=== PATIENT | male | born 1965 | race Asian ===

== ENCOUNTER 2021-08-01 17:39 | Emergency (ER) | payer OTHER ==
[~2021-08-01] VITALS: Ht 167.6 cm; Wt 79.4 kg
[2021-08-01 19:02] LABS: ABSOLUTE NEUTROPHILS 9.9 thou/uL (1.4-8.2); BASOPHILS 0.1 % (0.0-2.0); EOSINOPHILS 0.3 % (0.0-3.0); HEMOGLOBIN 12.1 gm/dL (14.0-18.0); LYMPHOCYTES 10.3 % (24.0-44.0); MCH 32.1 pg (26.0-34.0); MCHC 32.8 g/dL (28.0-37.0); PLATELET COUNT 186 thou/uL (150-400); POLYS 82.3 % (36.0-66.0); RBC 3.78 mil/uL (4.50-6.00); RDW 14.3 % (10.5-14.5); WBC 12.1 thou/uL (4.0-11.0)
[2021-08-01 19:05] LABS: CALCIUM 8.7 mg/dL (8.5-10.1); POTASSIUM 3.5 mmol/L (3.5-5.1)
[2021-08-01 19:11] LABS: ALBUMIN 2.8 g/dL (3.4-5.0); TOTAL BILIRUBIN 1.1 mg/dL (0.2-1.0)
[2021-08-01] MEDS ORDERED: CARVEDILOL3.125 MG PO (19:53)
[2021-08-01] MEDS ORDERED: XARELTO20 MG PO (19:53)
[2021-08-01 20:14] VITALS: BP 114/80
[2021-08-01] MEDS ORDERED: MEDROLDOSEPACK PO (20:15)
[2021-08-01] MEDS ORDERED: DOXYCYCLINE 10100 MG PO (20:15)
[2021-08-01] MEDS ORDERED: ULTRAM 50MG TAB50 MG PO (20:22)
== END 2021-08-01 20:28 | disposition home or self-care (01) ==
LOC: ER 17:39
PROVIDERS: Nurse Practitioner
DX: L03.113 Cellulitis of right upper limb (principal); Z79.899 Other long term (current) drug therapy

== ENCOUNTER 2021-08-03 16:54 | Emergency (ER) | payer OTHER ==
[~2021-08-03] VITALS: Ht 167.6 cm; Wt 74.8 kg
[~2021-08-03 16:54] MED LIST: CARVEDILOL3.125 MG PO; DOXYCYCLINE 10100 MG PO; MEDROLDOSEPACK PO; ULTRAM 50MG TAB50 MG PO; XARELTO20 MG PO
[2021-08-03 18:28] LABS: ABSOLUTE NEUTROPHILS 14.3 thou/uL (1.4-8.2); BASOPHILS 0.2 % (0.0-2.0); EOSINOPHILS 0.1 % (0.0-3.0); HEMATOCRIT 36.3 % (42.0-52.0); HEMOGLOBIN 12.2 gm/dL (14.0-18.0); LYMPHOCYTES 6.9 % (24.0-44.0); MCH 32.6 pg (26.0-34.0); MCHC 33.6 g/dL (28.0-37.0); MCV 97.3 fL (80.0-100.0); MONOCYTES 5.4 % (1.0-8.0); PLATELET COUNT 225 thou/uL (150-400); POLYS 87.4 % (36.0-66.0); RBC 3.73 mil/uL (4.50-6.00); RDW 14.2 % (10.5-14.5); WBC 16.4 thou/uL (4.0-11.0)
[2021-08-03 18:37] LABS: CALCIUM 9.3 mg/dL (8.5-10.1); CREATININE 1.2 mg/dL (0.7-1.3); POTASSIUM 3.9 mmol/L (3.5-5.1)
[2021-08-03 18:43] LABS: ALBUMIN 2.7 g/dL (3.4-5.0); TOTAL BILIRUBIN 0.4 mg/dL (0.2-1.0); TOTAL PROTEIN 7.3 g/dL (6.4-8.2)
[2021-08-03 20:21] VITALS: BP 111/81
== END 2021-08-03 20:23 | disposition home or self-care (01) ==
LOC: ER 16:54
PROVIDERS: Physician Assistant
DX: M10.041 Idiopathic gout, right hand (principal); Z79.899 Other long term (current) drug therapy